=== PATIENT | female | born 1995 | race Caucasian/White ===

== ENCOUNTER 2025-03-07 12:52 | Emergency (ER) | payer SELFPAY ==
--- OUTSIDE RECORDS SUMMARY | 2025-03-07 12:56 | XMS_ITS | Encounter Summary ---
Author Organization [facility] Address [address] [place] [address] Care Team Providers Care Hedis Abstractor Name Role Phone Megan Ramos MD Primary Care Provider Encounter Details Date Type Department Care Team (Late st Contact Info) Description 12/27/2014 Lab Requisition [facility] Services [place] [address] [place] [address] Pedrito Talbot, NO ADDRESS ON FILE Social History Tobacco Use Types Packs/Day Years Used Date Smoking Tobacco: Former Cigarettes 0.5 2 0 01/17/2012 - 01/16/2014 Smokeless Tobacco: Never Alcohol Use Standard Drinks/Week Comments No 0 (1 standard drink = 0.6 oz pur e alcohol) Comments No Sex and Gender Information Value Date Recorded Sex Assigned at Not on file Legal Sex 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 Gender Identity Not on file Sexual Orientation Not on file Occupation Industry Job Start Date Job End Date Not on file Not on file Not on file Not on file Not on file Not on file Not on file Not on file documented as of this encounter Plan of Treatment Not on file documented as of this encounter Procedures Procedure Name Priority Date/Time Associated Diagnosis Comments TSH Routine 12/27/2014 11:44 PM CDT T4 FREE Routine 12/27/2014 11:44 PM CDT documented in this encounter Results * (ABNORMAL) TSH (12/27/2014 11:44 PM CDT) TSH 11.51(H) 0.30 - 4.80 uIU/mL 12/28/2014 4:03 AM CDT [facility] Blood 12/27/2014 11:4 4 PM CDT 12/27/2014 11:44 PM CDT Pedrito T derick DO CHEMISTRY ORDERABLES Gloria l Result Performing Organization Address City/[facility]/ZIP Co de Phone Number [facility] [employer] [facility] CLIA # [id number] [address] [place] [address] * T4 FREE (12/27/2014 11:44 PM CDT) T4 FREE 0.83 0.70 - 1.80 ng/dL 12/28/2014 4:03 AM CDT [facility] Blood 12/27/2014 11:4 4 PM CDT 12/27/2014 11:44 PM CDT Pedrito Candy Johnstonick DO CHEMISTRY ORDERABLES Gloria l Result Performing Organization Address City/[facility] Co de Phone Number [facility] [employer] [facility] CLIA # [id number] [address] [place] [address] documented in this encounter Visit Diagnoses Not on filedocumented in this encounter Care Teams Hedis Abstractor Relationship Specialty Start Date End Date Megan Ramos MD [address] [address] PCP - General Family Practice 02/20/18 documented as of this encounter
--- OUTSIDE RECORDS SUMMARY | 2025-03-07 12:56 | XMS_ITS | Encounter Summary ---
Author Organization [facility] Address [address] [place] [address] Care Team Providers Care Dramatic Teacher Name Role Phone Megan Ramos MD Primary Care Provider [phone] Encounter Details Date Type Department Care Team (Late st Contact Info) Description 05/02/2015 Lab Requisition [facility] Laboratory Services [place] [address] [place] [address] Otf Cronin, DO NO ADDRESS ON FILE Sick Social History Tobacco Use Types Packs/Day Years Used Date Smoking Tobacco: Former Cigarettes 0.5 2 0 01/17/2012 - 01/16/2014 Smokeless Tobacco: Never Alcohol Use Standard Drinks/Week Comments No 0 (1 standard drink = 0.6 oz pur e alcohol) Comments No Sex and Gender Information Value Date Recorded Sex Assigned at Not on file Legal Sex Female 6:10 AM RFID SYSTEMS ARCHITECT Gender Identity Not on file Sexual Orientation [...] Priority Date/Time Associated Diagnosis Comments TSH Routine 05/02/2015 9:26 PM RFID SYSTEMS ARCHITECT Sick [ICD-10-CM] documented in this encounter Results * (ABNORMAL) TSH (05/02/2015 9:26 PM RFID SYSTEMS ARCHITECT) TSH 8.22(H) 0.27 - 4.20 uIU/mL 05/02/2015 10:39 PM RFID SYSTEMS ARCHITECT [facility] Blood Collection / Unknown 05/02/2015 9:26 PM RFID SYSTEMS ARCHITECT 05/02/2015 9:26 PM RFID SYSTEMS ARCHITECT Otf Cronin DO CHEMISTRY ORDERABLES Final Resu lt [facility] CLIA # [id number] [address] [address] documented in this encounter Visit Diagnoses Diagnosis Sick Other unknown and unspecified cause of morbidity or mortality documented in this encounter Care Teams Dramatic Teacher Relationship Specialty Start Date End Date Megan Ramos MD [address] [phone] PCP - General Family Practice 02/20/18 documented as of this encounter
--- OUTSIDE RECORDS SUMMARY | 2025-03-07 12:56 | XMS_ITS | Encounter Summary ---
Author Organization [facility] Address [address] [place] [address] Care Team Providers Care Machine Operator Hop Worker Name Role Phone Megan Ramos MD Primary Care Provider Encounter Details Date Type Department Care Team (Late st Contact Info) Description 04/11/2009 Ancillary Orders [facility] [address] [place] [address] Jorge Steel MD [address] [place] [phone] Knee Pain Social History Tobacco Use Types Packs/Day Years Used Date Smoking Tobacco: Never Alcohol Use Standard Drinks/Week Comments No 0 (1 standard drink = 0.6 oz pur e alcohol) Comments No Sex and Gender Information Value Date Recorded Sex Assigned at Not on file Legal Sex Female 6:10 AM EMERGENCY COMMUNICATIONS OPERATOR Gender Identity Not on file Sexual Orientation Not on file documented as of this encounter Plan of Treatment Not on file documented as of this encounter Results * XR KNEE 1 OR 2 VW RIGHT (04/11/2009 7:55 AM EMERGENCY COMMUNICATIONS OPERATOR) Anatomical Region Laterality Modality Lower Extremity Computed Radiogr aphy Narrative 04/11/2009 10:29 AM EMERGENCY COMMUNICATIONS OPERATOR X-rays obtained in the clinic today of the right knee show no osteolytic or osteoblastic lesions. No fractures are seen. Joint spaces are well maintained. There is some closure of the growth plates occurring. Procedure Note Bandar Qiu PA - 04/11/2009 X-rays obtained in the clinic today of the right knee show no osteolyticor osteoblastic lesions. No fractures are seen. Joint spaces are wellmaintained. There is some closure of the growth plates occurring. us Jorge Steel MD DIAGNOSTIC IMAGING ORDERABLES Final Result documented in this encounter Visit Diagnoses Diagnosis Knee pain Pain in joint, lower leg documented in this encounter Care Teams Machine Operator Hop Worker Relationship Specialty Start Date End Date Megan Ramos MD [address] [address] PCP - General Family Practice 02/20/18 documented as of this encounter
--- OUTSIDE RECORDS SUMMARY | 2025-03-07 12:57 | XMS_ITS | Encounter Summary ---
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
--- OUTSIDE RECORDS SUMMARY | 2025-03-07 12:57 | XMS_ITS | Encounter Summary ---
Author Organization [facility] Address [address] [place] [address] Care Team Providers Care Police Captain Precinct Name Role Phone Megan Ramos MD Primary Care Provider Encounter Details Date Type Department Care Team (Latest Contact Info) Description 08/04/2004 Outpatient Historical [facility] [address] [place] [address] Penny Padilla, BIT SETTER [address] [place] [address] INFLUENZA WITH PNEUMONIA (Primary Dx) Social History Tobacco Use Types Packs/Day Years Used Date Smoking Tobacco: Never Assessed Comments Unknown Sex and Gender Information Value Date Recorded Sex Assigned at Not on file Legal Sex Female 6:10 AM RESOLUTION ANALYST Gender Identity Not on file Sexual Orientation Not on file documented as of this encounter Plan of Treatment Not on file documented as of this encounter Visit Diagnoses Diagnosis Influenza with pneumonia- Primary documented in this encounter Care Teams Police Captain Precinct Relationship Specialty Start Date End Date Megan Ramos MD [address] [facility] [place] [address] PCP - General Family Practice 02/20/18 documented as of this encounter
--- OUTSIDE RECORDS SUMMARY | 2025-03-07 12:57 | XMS_ITS | Encounter Summary ---
Author Organization [facility] Address [address] [place] [address] Care Team Providers Care Restrooms Or Lounges Maid Name Role Phone Megan Ramos MD Primary Care Provider [phone] Encounter Details Date Type Department Care Team (Latest Contact Info) Description 04/05/2006 Outpatient Historical [facility] [address] [place] [address] Penny Padilla, WOOD SKI MAKER [address] [place] [address] Superfic Foreign Bdy NEC (Primary Dx) Social History Tobacco Use Types Packs/Day Years Used Date Smoking Tobacco: Never Assessed Comments Unknown Sex and Gender Information Value Date Recorded Sex Assigned at Not on file Legal Sex Female 6:10 AM HOOP ROLLS OPERATOR Gender Identity Not on file Sexual Orientation Not on file documented as of this encounter Plan of Treatment Not on file documented as of this encounter Visit Diagnoses Diagnosis Other, multiple, and unspecified sites, superficial foreign body (splinter), without major open wound and without mention of infection- Primary documented in this encounter Care Teams Restrooms Or Lounges Maid Relationship Specialty Start Date End Date Megan Ramos MD [address] [facility] [place] [phone] PCP - General Family Practice 02/20/18 documented as of this encounter
--- OUTSIDE RECORDS SUMMARY | 2025-03-07 12:57 | XMS_ITS | Encounter Summary ---
Author Organization [facility] Address [address] [place] [address] Care Team Providers Care Insole Reinforcer Name Role Phone Megan Ramos MD Primary Care Provider [phone] Encounter Details Date Type Department Care Team (Latest Contact Info) Description 08/07/2002 Outpatient Historical [facility] [address] [place] [address] Michelle Byrd MD NO ADDRESS ON FILE ACUTE PHARYNGITIS (Primary Dx) Social History Tobacco Use Types Packs/Day Years Used Date Smoking Tobacco: Never Assessed Comments Unknown Sex and Gender Information Value Date Recorded Sex Assigned at Not on file Legal Sex Female 6:10 AM VIDEOTAPE OPERATOR Gender Identity Not on file Sexual Orientation Not on file documented as of this encounter Plan of Treatment Not on file documented as of this encounter Visit Diagnoses Diagnosis Acute pharyngitis- Primary documented in this encounter Care Teams Insole Reinforcer Relationship Specialty Start Date End Date Megan Ramos MD [address] [address] PCP - General Family Practice 02/20/18 documented as of this encounter
--- OUTSIDE RECORDS SUMMARY | 2025-03-07 12:57 | XMS_ITS | Encounter Summary ---
Author Organization [facility] Address [address] [place] [address] Care Team Providers Care Water Service Supervisor Name Role Phone Megan Ramos MD Primary Care Provider Encounter Details Date Type Department Care Team (Late st Contact Info) Description 01/26/2007 Outpatient Historical [facility] [address] [place] [address] Nithin Alston MD NO ADDRESS ON FILE Social History Tobacco Use Types Packs/Day Years Used Date Smoking Tobacco: Never Assessed Comments Unknown Sex and Gender Information Value Date Recorded Sex Assigned at Not on file Legal Sex Female 6:10 AM COKEMAN Gender Identity Not on file Sexual Orientation Not on file documented as of this encounter Plan of Treatment Not on file documented as of this encounter Visit Diagnoses Not on filedocumented in this encounter Care Teams Water Service Supervisor Relationship Specialty Start Date End Date Megan Ramos MD [address] [facility] [address] [place] [address] PCP - General Family Practice 02/20/18 documented as of this encounter
--- OUTSIDE RECORDS SUMMARY | 2025-03-07 12:57 | XMS_ITS | Encounter Summary ---
Author Organization [facility] Address [address] [place] [address] Care Team Providers Care Liquid Hydrogen Plant Operator Name Role Phone Megan Ramos MD Primary Care Provider Encounter Details Date Type Department Care Team (Late st Contact Info) Description 12/05/2006 Outpatient Historical [facility] [address] [place] [address] Nithin Alston MD NO ADDRESS ON FILE Follow-Up Examination, Following Unspecified Surgery (Primary Dx) Social History Tobacco Use Types Packs/Day Years Used Date Smoking Tobacco: Never Assessed Comments Unknown Sex and Gender Information Value Date Recorded Sex Assigned at Not on file Legal Sex Female 6:10 AM MEDICATION AID Gender Identity Not on file Sexual Orientation Not on file documented as of this encounter Plan of Treatment Not on file documented as of this encounter Visit Diagnoses Diagnosis Follow-up examination, following unspecified surgery- Primary documented in this encounter Care Teams Liquid Hydrogen Plant Operator Relationship Specialty Start Date End Date Megan Ramos MD [address] [facility] [address] [place] [address] PCP - General Family Practice 02/20/18 documented as of this encounter
--- OUTSIDE RECORDS SUMMARY | 2025-03-07 12:57 | XMS_ITS | Data Portability ---
Author Organization [facility] Randy Shirley [facility] Brianne Hickey [facility] Address [address] [address] Assessment No assessment recorded. Plan of Treatment Reminders Order Date Submit Date Provider Last Modified By Organization Details Last Modified Time Details Appointments None recorded. Lab None recorded. Referral None recorded. Procedures None recorded. Surgeries None recorded. Imaging None recorded. Medication Orders prednisone 10 mg tablet 2024 [id number], [address], [place], [place], [id number], 17:19:12 doxycycline monohydrate 100 mg capsule 2024 025 [facility] #[id number], [address], [place], [place], [id number], 17:19:11 Patient TargetsNo targets recorded. Patient Instructions Encounter Date Encounter Id Patient Instructions Last Modified By Organization Details Last Modified Time 08/23/2024 [id number] Increase fluids and follow up for worsening [id number] Not available 08/23/2024 17:21:17 Reason for Referral None Reported. Medical Equipment None Reported. Allergies Allergen ID Allergen Name Allergen Category Reaction Reaction Severity Criticality Documentation Date Start Date Code Code System Note Provider Name and Address Organization Details Recorded Time 74116 Product containin g penicilli n (product) medicatio n hives Not available Not available 01/05/2023 21117 8001 SNOMED React ion: Hives ; Comme nt: Recor ded 04/08 1:47P M by Dodie Meneses LPN, Offic e Visit ; Promo blayne; Signi ficjacquie ce: *; ; Not Available [facility] 3 02:23:58 Medications Name Sig Start Date Stop Date Status Note LastModified by Organization Details LastModified Time prednison e 10 mg tablet Take 2 tabs daily for 4 days and 1 tab daily for 4 days 2024 active Not Available Not Available Not Avai lable prednison e 20 mg tablet daily 08/23 completed 60732; Recorded 08/11/19 22 10:26AM by Leela Castelan (Authori анна through KIM Otero), Phone Encounte r; Refill Quantity : 0; Not Available Not Available Not Available Synthroid 100 mcg tablet daily active 0; Recorded 11/08/19 20 2:56PM by Barry Cordova on/Thomas dum; Not Available Not Available Not Available doxycycli ne monohydra te 100 mg capsule Take 1 capsule twice a day by oral route with meal(s) for 10 days. 2024 active Not Available Not Available Not Avai lable fluoxetin e active Not Available Not Available Not Available omeprazol e active Not Available Not Available Not Available Vitamin daily 08/23 completed 0; Recorded 04/08/20 17 1:50PM by Andre Meneses LPN, Office Visit; Not Available Not Available Not Available ProAir HFA 90 mcg/actua tion aerosol inhaler every four hours, as needed 08/23 completed 1 inhaler; ; Recorded 08/11/19 22 10:28AM by Leela Castelan (Bartolo jj through [facility]IM Otero), Phone Encounte r; Refill Quantity : 0; Not Available Not Available Not Available Vitals Date Recorded Body weight Body mass index (BMI) Body height Body temperature Heart rate Oxygen saturation Oxygen saturation in Arterial blood by Pulse oximetry Systolic And Diastolic Provider Name and Address Organization Details Last Updated DateTime 5 71004.0 1 g 34.7 kg/m2 165.1 cm 99.4 [degF] 110 /min 98 % 98 % 128/72 mm[Hg] Rosalia Banuelos [facility]CChristofer 5 17:07:20 Social History None recorded. Functional Status None recorded. Mental Status None recorded. Family History Nothing Reported. Medical History No medical history recorded. Gynecological HistoryNo gynecological history recorded. Obstetrics History GPAL:G 0 P 0 0 0 0 Past Encounters Encounter ID Performer Location Encounter Start Date Encounter Closed Date Diagnosis/Indication Diagnosis SNOMED-CT Code Diagnosis ICD10 Code Diagnosis IMO Codes Diagnosis Note [id number] ZAC LOPEZ APRN [facility] ([facility]) [address] [place] [address] 08/23/2024 16:56:36 08/23/2024 17:18:09 Acute upper respiratory infection 47965113 J06.9 Acute bronchitis 1867598 2 J20.9 Health Concerns Section Related Observation LastModified by Organization Detai ls LastModified Time None Recorded Concern Status LastModified by Organization Details LastModified Time None Recorded Advance Directives Directive None Recorded Payers Insurance Date Sequence Insurance Name Policy Number Policy De Dios Covered Member ID De Dios Member ID Guarantor Name 08/23/[address] [facility] [id number] Ruchi Umana [id number] Ruchi Umana Notes Date Note Type Note Provider Name and Address Organization Details Recorded Time 08/23/2024 text/html walk in ptPt has a cough, chest congestion, and sinus pain/pressure for 4 days. ZAC LOPEZ APRN [address] [place], [address], [facility] 08/23/2024 17:47:44 OBGyn Episode No OBEpisode recorded.
--- OUTSIDE RECORDS SUMMARY | 2025-03-07 12:57 | XMS_ITS | Encounter Summary ---
Author Organization [facility] Address [address] [place] [address] Care Team Providers Care Buffing Wheel Inspector Name Role Phone Megan Ramos MD Primary Care Provider Encounter Details Date Type Department Care Team (Latest Contact Info) Description 05/18/2002 Outpatient Historical [facility] [address] [place] [address] Yuriy Vasquez MD [address] [phone] ACUTE PHARYNGITIS (Primary Dx); OTITIS MEDIA NOS Social History Tobacco Use Types Packs/Day Years Used Date Smoking Tobacco: Never Assessed Comments Unknown Sex and Gender Information Value Date Recorded Sex Assigned at Not on file Legal Sex Female 6:10 AM COOK CHILI Gender Identity Not on file Sexual Orientation Not on file documented as of this encounter Plan of Treatment Not on file documented as of this encounter Visit Diagnoses Diagnosis Acute pharyngitis- Primary Unspecified otitis media documented in this encounter Care Teams Buffing Wheel Inspector Relationship Specialty Start Date End Date Megan Ramos MD [address] [phone] PCP - General Family Practice 02/20/18 documented as of this encounter
--- OUTSIDE RECORDS SUMMARY | 2025-03-07 12:57 | XMS_ITS | Clinical Summary ---
Author Organization [facility] [place] Address [address] [place] [address] Care Team Providers Care Esthetics Instructor Name Role Phone Megan Ramos MD Primary Care Provider Allergies Active Allergy Reactions Criticality Noted Date Comments Penicillins Rash Low 01/19/2009 Permethrin Swelling Low 07/31/2013 Medications [id number] ( VITAMIN) TabletIndication s:Encounter for supervision of other normal in first trimester Take 1 Tablet by mouth daily. 30 Tablet 1 03/23/2016 Active levothyroxine (SYNTHROID) 112 mcg tablet Take 1 Tablet (112 mcg) by mouth daily helpdesk specialist. 30 Tablet 2 04/10/2018 Active sertraline (ZOLOFT) 50 mg tablet Take 1.5 Tablets (75 mg) by mouth daily. 45 Tablet 3 04/10/2018 Active loratadine (CLARITIN) 10 mg tabletIndication s:Seasonal allergic rhinitis due to pollen Take 1 Tablet (10 mg) by mouth daily. 30 Tablet 2 10/20/2018 Active Active Problems Problem Noted Date Diagnosed Date Supervision of normal 04/13/2018 Tubal ligation evaluation 04/10/2018 Screening for cervical cancer 02/19/2018 Overview (02/19/2018): Normal pap 02/2018 Depression with anxiety 02/12/2018 History of kidney stones 12/11/2016 S/P repeat low transverse X 2 12/12/19 17 Acquired hypothyroidism 07/29/2015 Overview (12/11/2016): Resolved Problems Problem Noted Date Diagnosed Date Resolved Date depression 12/11/20162017 Iron deficiency anemia 12/11/201602/13 Encounter for supervision of normal in third trimester 11/04/2016 12/11/2016 Encounter for supervision of normal first in third trimester 09/09/2016 09/24/2016 Encounter for supervision of normal in second trimester 07/12/2016 09/09/2016 Back pain affecting 05/17/2016 08/28/2016 S/P X 1 05/12/2016 12/11/2016 History of antonia chapin, currently 05/12/2016 12/11/2016 Kidney stone complicating 04/14/2016 12/11/2016 Acute bilateral low back rita n without sciatica 04/14/2016 05/17/2016 Contraception management 10/08/201408/2015 GERD (gastroesophageal reflux disease) 10/08/2014 12/11/2016 depression 09/10/20142015 GERD (gastroesophageal reflux disease) 08/07/2014 08/27/2014 GBS (group B Streptococcus c arrier), +RV culture, currently 08/05/2014 08/27/2014 Breech presentation 08/05/2014 08/28/19 15 Tobacco abuse, in remission 03/11/2014 02/12/2018 FH: thyroid disease 02/11/2014 08/28/19 15 Chronic nasal congestion 02/11/2014 Sinus pressure 02/11/2014 05/11/2014 Tobacco abuse 02/11/2014 03/11/2014 Supervision of normal first 01/24/2014 08/27/2014 Hypothyroidism complicating 01/23/2014 10/08/2014 Infectious mononucleosis 07/12/201003/2012 Immunizations Immunization Administration Dates Next Due (ADACEL/BOOSTRIX)(10 YR UP) TDAP VACCINE, 0.5ML, IM 09/06/2016,07/01/2014 (M-M-R II/PRIORIX)(12 MO UP) MEASLES, MUMPS AND RUBELLA VIRUS VACCINE, 0.5 ML IM/SUBCUT 10/13/1999,12/07/1996 Dt Dtp Dtap Vaccine 10/13/1999, 7,05/12/1996,1995,1995 HIB, Unspecified Formulation 11/15/1997, 05/12/1996,01/21/1996,1995 HPV Vaccine 3 Dose IM VFC 10/06/2010 Hepatitis B Vaccine 07/21/1996,1995,1995 INFLUENZA VACCINE QUADRIVALE NT 3 YR UP PF IM 03/13/2018 IPV/OPV 10/13/1999, 6,01/21/1996,1995 Influenza Vaccine Split 3+ Yrs PF IM 04/12/2016, 04/08/2014 Tdap Vaccine > 7 Yo IM VFC 01/21/2009 Family History Medical History Relation Name Comments Healthy Brother 1 Healthy Brother 2 Healthy Daughter 1 Healthy Daughter 2 Colon Cancer Father Heart Disease Father Other Father arthritis Other Maternal Grandfather unknown Healthy Maternal Grandmother Other Maternal Grandmother unknown Hypertension Mother Other Mother graves disease Thyroid Disease Mother Heart Disease Paternal Grandfather Heart Disease Paternal Grandmother Healthy Sister 1 Healthy Sister 2 Breast Cancer Neg Hx Relation Name Status Comments Brother 1 Alive Brother 2 Alive Daughter 1 Alive Daughter 2 Alive Father Maternal Grandfather Maternal Grandmother Alive Mother Alive Paternal Grandfather Paternal Grandmother Sister 1 Alive Sister 2 Alive Social History Tobacco Use Types Packs/Day Years Used Date Smoking Tobacco: Former Cigarettes 0.5 2 0 01/17/2012 - 01/16/2014 Smokeless Tobacco: Never Alcohol Use Standard Drinks/Week Comments No 0 (1 standard drink = 0.6 oz pur e alcohol) Comments No Sex and Gender Information Value Date Recorded Sex Assigned at Not on file 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 Sex Female 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 Gender Identity Not on file Sexual Orientation Not on file Occupation Industry Job Start Date Job End Date Not on file Not on file Not on file Not on file Not on file Not on file Not on file Not on file Last Filed Vital Signs Vital Sign Reading Time Taken Comments Blood Pressure 120/80 10/20/2018 11:42 AM CDT Pulse 80 10/20/2018 11:42 AM CDT Temperature 36.9 C (98.5 F) 10/20/2018 11:42 AM CDT Respiratory Rate 20 10/20/2018 11:42 AM CDT Oxygen Saturation 98% 10/20/2018 11:42 AM CDT Inhaled Oxygen Concentration - - Weight 77.1 kg (170 lb) 10/20/2018 11:42 AM CDT Height 162.6 cm (5' 4 ) 10/20/2018 11:42 AM CDT Body Mass Index 29.18 10/20/2018 11:42 AM CDT Plan of Treatment Health Maintenance Due Date Last Done Comments HPV VACCINES (2 - 3-dose series) 11/03/2010 10/07/19 11 Preventative Visit-Managed Medicaid 09/03/2014 08/01/2011 CERVICAL CANCER SCREENING 02/13/2021 PAP SMEAR 02/13/2021 02/13/2018, 06/10, 11/28/2011, Additional history exists HPV/Cotest (21-29) 02/13/2023 02/13/2018, 0 06/22/2013, 11/28/2011, Additional history exists INFLUENZA VACCINE (#1) 2025 8, 04/12/2016, 04/08/2014 HPV/Cotest (30-65) 09/03/2025 02/13/2018, 0 06/22/2013, 11/28/2011, Additional history exists DTAP/TDAP/TD VACCINES (9 - T d or Tdap) 09/06/2026 09/06/2016, 07/01/2014, 01/21/2009, Additional history exists HEPATITIS B VACCINES Completed 07/21/1996, 1995, 1995 Procedures Procedure Name Priority Date/Time Associated Diagnosis Comments CERV/VAG CYTO SCREEN PAP RLFX HPV Routine 02/13/2018 4:53 PM CDT Screening for cervical cancer Encounter for supervision of other normal in second trimester from Last 3 Months or Most Recently Relevant to Health Maintenance Results * CERV/VAG CYTO SCREEN PAP RLFX HPV (02/13/2018 4:53 PM CDT) CLINICAL INFORMATION SEE COMMENT 02/18/2018 3:05 PM CDT [facility] Comment:Information not prov ided LAST MENSTRUAL PERIOD SEE COMMENT 02/18/2018 3:05 PM CDT [facility] Comment:INFORMATION NOT PROV IDED PREV PAP: 06/22/13 02/18/2018 3:05 PM CDT [facility] PREV BX: SEE COMMENT 02/18/2018 3:05 PM CDT [facility] Comment:INFORMATION NOT PROV IDED SOURCE Endocervix 02/18/2018 3:05 PM CDT [facility] ADEQUACY: SEE COMMENT 02/18/2018 3:05 PM CDT [facility] Comment: Satisfactory for evaluation. Endocervical/transformation zone component present. Age and/or menstrual status not provided PAP INTERP SEE COMMENT 02/18/2018 3:05 PM CDT [facility] Comment: Negative for intraepithelial lesion or malignancy. Reactive cellular changes associated with repair COMMENT SEE COMMENT 02/18/2018 3:05 PM CDT [facility] Comment: This Pap test has been evaluated with computer assisted technology. FINISH INSPECTOR: SEE COMMENT 2017 3:05 PM CDT [facility] Comment: BLG, CT(ASCP) CT screening location: [place] [address] Administration JOSE Taylor [address] PATHOLOGIST SEE COMMENT 02/18/2018 3:05 PM CDT [facility] Comment: Karl Carranza M.D., Board Certified in Anatomic Pathology and Cytopathology. (electronic signature) EXPLANATORY NOTE SEE COMMENT 018 3:05 PM CDT [facility] Comment: EXPLANATORY NOTE: The Pap is a screening test for cervical cancer. It is not a diagnostic test and is subject to false negative and false positive results. It is most reliable when a satisfactory sample, regularly obtained, is submitted with relevant clinical findings and history, and when the Pap result is evaluated along with historic and current clinical information. Genital SWAB OF ENDOCERVIX / Unknown Collection / Unknown 02/13/2018 4:53 PM CDT 02/14/2018 8:04 AM CDT Narrative [facility] - 02/18/2018 3:05 PM CDT Performing Organization Information: Site ID: Name: [email or web address] Address: [facility] Administration JOSE Gutierrez [address] Director: Arturo Avila us Suzanne Ellis MD PATHOLOGY/CYTOLOGY ORDERAB LES Final Result [facility] from Last 3 Months or Most Recently Relevant to Health Maintenance Insurance [facility] [place] Advance Directives For more information, please contact: [phone] * Full Code (Latest Code Status on File) Date Activated Date Inactivated Comments 05/17/2009 8:12 AM 05/18/2009 2:02 AM * Full Code Date Activated Date Inactivated Comments 05/17/2009 8:06 AM 05/17/2009 8:12 AM * Full Code Date Activated Date Inactivated Comments 04/12/2009 7:17 AM 04/13/2009 2:02 AM * Full Code Date Activated Date Inactivated Comments 04/12/2009 6:51 AM 04/12/2009 7:17 AM Care Teams Esthetics Instructor Relationship Specialty Start Date End Date Megan Ramos MD [address] [phone] PCP - General Family Practice 02/20/18
--- OUTSIDE RECORDS SUMMARY | 2025-03-07 12:57 | XMS_ITS | Encounter Summary ---
Author Organization [facility] Address [address] [place] [address] Care Team Providers Care Knifeman Name Role Phone Megan Ramos MD Primary Care Provider [phone] Encounter Details Date Type Department Care Team (Late st Contact Info) Description 03/18/2017 Lab Requisition [facility] Laboratory Services [place] [address] [place] [address] Agus Mcmahan PA NO ADDRESS ON FILE Social History Tobacco Use Types Packs/Day Years Used Date Smoking Tobacco: Former Cigarettes 0.5 2 0 01/17/2012 - 01/16/2014 Smokeless Tobacco: Never Alcohol Use Standard Drinks/Week Comments No 0 (1 standard drink = 0.6 oz pur e alcohol) Comments No Sex and Gender Information Value Date Recorded Sex Assigned at Not on file 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 Gender Identity Not on file Sexual Orientation [...] Priority Date/Time Associated Diagnosis Comments TSH Routine 03/18/2017 9:35 PM CDT T4 FREE Routine 03/18/2017 9:35 PM CDT documented in this encounter Results * TSH (03/18/2017 9:35 PM CDT) TSH 0.36 0.27 - 4.20 uIU/mL 03/19/2017 12:16 AM CDT [facility] Blood 03/18/2017 9:35 PM CDT 03/18/2017 11:01 PM CDT Agus LUNDY CHEMISTRY ORDERABLES Final Re sult [facility] CLIA # [id number] [address] [place] [address] * T4 FREE (03/18/2017 9:35 PM CDT) T4 FREE 1.33 0.93 - 1.70 ng/dL 03/19/2017 12:16 AM CDT [facility] Blood 03/18/2017 9:35 PM CDT 03/18/2017 11:01 PM CDT Agus LUNDY CHEMISTRY ORDERABLES Final Re sult Performing Organization Address City/[facility]/ZIP Co de Phone Number [facility] CLIA # [id number] [address] [place] [address] documented in this encounter Visit Diagnoses Not on filedocumented in this encounter Care Teams Knifeman Relationship Specialty Start Date End Date Megan Ramos MD [address] [phone] PCP - General Family Practice 02/20/18 documented as of this encounter
--- OUTSIDE RECORDS SUMMARY | 2025-03-07 12:57 | XMS_ITS | Encounter Summary ---
Author Organization [facility] Address [address] [place] [address] Care Team Providers Care Poundmaster Name Role Phone Megan Ramos MD Primary Care Provider Encounter Details Date Type Department Care Team (Latest Contact Info) Description 09/07/2002 Outpatient [facility] [address] [place] [address] Yuriy Vasquez MD [address] [facility] [address] [place] [phone] NONINFEC GASTROENTERIT NEC (Primary Dx) Social History Tobacco Use Types Packs/Day Years Used Date Smoking Tobacco: Never Assessed Comments Unknown Sex and Gender Information Value Date Recorded Sex Assigned at Not on file Legal Sex Female 6:10 AM BLIND ESCORT Gender Identity Not on file Sexual Orientation Not on file documented as of this encounter Plan of Treatment Not on file documented as of this encounter Visit Diagnoses Diagnosis Other and unspecified noninfectious gastroenteritis and colitis(558.9)- Primary Other and unspecified noninfectious gastroenteritis and colitis documented in this encounter Care Teams Poundmaster Relationship Specialty Start Date End Date Meagn Ramos MD [address] [facility] [address] [place] [phone] PCP - General Family Practice 02/20/18 documented as of this encounter
--- OUTSIDE RECORDS SUMMARY | 2025-03-07 12:57 | XMS_ITS | Encounter Summary ---
Author Organization [facility] Address [address] [place] [address] Care Team Providers Care Hydrometer Finisher Name Role Phone Megan Ramos MD Primary Care Provider [phone] Encounter Details Date Type Department Care Team (Late st Contact Info) Description 02/21/2015 Lab Requisition [facility] Laboratory Services [place] [address] [place] [address] Otf Cronin, DO NO ADDRESS ON FILE Social History Tobacco Use Types Packs/Day Years Used Date Smoking Tobacco: Former Cigarettes 0.5 2 0 01/17/2012 - 01/16/2014 Smokeless Tobacco: Never Alcohol Use Standard Drinks/Week Comments No 0 (1 standard drink = 0.6 oz pur e alcohol) Comments No Sex and Gender Information Value Date Recorded Sex Assigned at Not on file Legal Sex Female 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 ASSET 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 Gender Identity Not on file Sexual Orientation [...] Priority Date/Time Associated Diagnosis Comments TSH Routine 02/21/2015 10:59 PM CDT T4 FREE Routine 02/21/2015 10:59 PM CDT documented in this encounter Results * (ABNORMAL) TSH (02/21/2015 10:59 PM CDT) TSH 7.54(H) 0.27 - 4.20 uIU/mL 02/22/2015 12:01 AM CDT [facility] Blood 02/21/2015 10:5 9 PM CDT 02/21/2015 10:59 PM CDT Otf Cronin DO CHEMISTRY ORDERABLES Final Resu lt Performing Organization Address City/[facility]/ZIP Co de Phone Number [facility] CLIA # [id number] [address] [place] [address] * T4 FREE (02/21/2015 10:59 PM CDT) T4 FREE 0.93 0.93 - 1.70 ng/dL 02/22/2015 12:01 AM CDT [facility] Blood 02/21/2015 10:5 9 PM CDT 02/21/2015 10:59 PM CDT Otf Cronin DO CHEMISTRY ORDERABLES Final Resu lt Performing Organization Address City/[facility] Co de Phone Number [facility] CLIA # [id number] [address] [place] [address] documented in this encounter Visit Diagnoses Not on filedocumented in this encounter Care Teams Hydrometer Finisher Relationship Specialty Start Date End Date Megan Ramos MD [address] [phone] PCP - General Family Practice 02/20/18 documented as of this encounter
--- OUTSIDE RECORDS SUMMARY | 2025-03-07 12:57 | XMS_ITS | Encounter Summary ---
Author Organization [facility] Address [address] [place] [address] Care Team Providers Care Coordinating Producer Name Role Phone Megan Ramos MD Primary Care Provider Encounter Details Date Type Department Care Team (Late st Contact Info) Description 11/20/2006 Emergency 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
--- OUTSIDE RECORDS SUMMARY | 2025-03-07 12:57 | XMS_ITS | Encounter Summary ---
Author Organization [facility] Address [address] [place] [address] Care Team Providers Care Historic Interpreter Name Role Phone Megan Ramos MD Primary Care Provider [phone] Encounter Details Date Type Department Care Team (Latest Contact Info) Description 12/28/2002 Outpatient Historical [facility] [address] [place] [address] Yuriy Vasquez MD [address] [facility] [address] [place] [phone] OTITIS MEDIA NOS (Primary Dx) Social History Tobacco Use Types Packs/Day Years Used Date Smoking Tobacco: Never Assessed Comments Unknown Sex and Gender Information Value Date Recorded Sex Assigned at Not on file Legal Sex Female 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
--- OUTSIDE RECORDS SUMMARY | 2025-03-07 12:57 | XMS_ITS | Encounter Summary ---
Author Organization [facility] Address [address] [place] [address] Care Team Providers Care Parking Lot Spotter Name Role Phone Megan Ramos MD Primary Care Provider Encounter Details Date Type Department Care Team (Latest Contact Info) Description 07/20/1998 Outpatient Historical [facility] [address] [place] [address] Blas Santiago, DO [address] [place] [address] Cough (Primary Dx); Vomiting alone; Acute sinusitis, unspecified Social History Tobacco Use Types Packs/Day Years Used Date Smoking Tobacco: Never Assessed Comments Unknown Sex and Gender Information Value Date Recorded Sex Assigned at Not on file Legal Sex Female 6:10 AM TRAFFIC SIGN SUPERVISOR Gender Identity Not on file Sexual Orientation Not on file documented as of this encounter Plan of Treatment Not on file documented as of this encounter Visit Diagnoses Diagnosis Cough- Primary Vomiting alone Acute sinusitis, unspecified documented in this encounter Care Teams Parking Lot Spotter Relationship Specialty Start Date End Date Megan Ramos MD [address] [phone] PCP - General Family Practice 02/20/18 documented as of this encounter
--- OUTSIDE RECORDS SUMMARY | 2025-03-07 12:57 | XMS_ITS | Encounter Summary ---
Author Organization [facility] Address [address] [place] [address] Care Team Providers Care Pile Driver Name Role Phone Megan Ramos MD Primary Care Provider [phone] Encounter Details Date Type Department Care Team (Latest Contact Info) Description 08/06/2003 Outpatient Historical [facility] [address] [place] [address] Penny Padilla, MACHINIST APPRENTICE [address] [place] [address] STREP SORE THROAT (Primary Dx) Social History Tobacco Use Types Packs/Day Years Used Date Smoking Tobacco: Never Assessed Comments Unknown Sex and Gender Information Value Date Recorded Sex Assigned at Not on file Legal Sex Female 6:10 AM APPLICATION SECURITY CONSULTANT Gender Identity Not on file Sexual Orientation Not on file documented as of this encounter Plan of Treatment Not on file documented as of this encounter Visit Diagnoses Diagnosis Streptococcal sore throat- Primary documented in this encounter Care Teams Pile Driver Relationship Specialty Start Date End Date Megan Ramos MD [address] [facility] [address] [place] [phone] PCP - General Family Practice 02/20/18 documented as of this encounter
--- OUTSIDE RECORDS SUMMARY | 2025-03-07 12:57 | XMS_ITS | Encounter Summary ---
Author Organization [facility] Address [address] [place] [address] Care Team Providers Care Automotive Sales Executive Name Role Phone Megan Ramos MD Primary Care Provider Encounter Details Date Type Department Care Team (Latest Contact Info) Description 04/03/2005 Outpatient Historical [facility] Family Medicine [address] [address] Michelle Byrd MD NO ADDRESS ON FILE ACUTE URI NOS (Primary Dx); ALLERGIC RHINITIS NOS Social History Tobacco Use Types Packs/Day Years Used Date Smoking Tobacco: Never Assessed Comments Unknown Sex and Gender Information Value Date Recorded Sex Assigned at Not on file Legal Sex Female 6: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
--- OUTSIDE RECORDS SUMMARY | 2025-03-07 12:57 | XMS_ITS | Encounter Summary ---
Author Organization [facility] Address [address] [place] [address] Care Team Providers Care Turfgrass Technician Name Role Phone Megan Ramos MD Primary Care Provider [phone] Encounter Details Date Type Department Care Team (Latest Contact Info) Description 12/26/2006 Outpatient Historical [facility] Hand [facility] [address] [place] [address] Nithin Alston MD NO ADDRESS ON FILE Encounter for Occupational Therapy (Primary Dx) Social History Tobacco Use Types Packs/Day Years Used Date Smoking Tobacco: Never Assessed Comments Unknown Sex and Gender Information Value Date Recorded Sex Assigned at Not on file 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
--- OUTSIDE RECORDS SUMMARY | 2025-03-07 12:57 | XMS_ITS | Encounter Summary ---
Author Organization [facility] Address [address] [place] [address] Care Team Providers Care Underwater Hunter Name Role Phone Megan Ramos MD Primary Care Provider Encounter Details Date Type Department Care Team (Latest Contact Info) Description 05/14/2005 Outpatient Historical [facility] [address] [place] [address] Penny Padilla, SUPERVISOR RICE MILLING [address] [place] [address] ACUTE URI NOS (Primary Dx) Social History Tobacco Use Types Packs/Day Years Used Date Smoking Tobacco: Never Assessed Comments Unknown Sex and Gender Information Value Date Recorded Sex Assigned at Not on file Legal Sex Female 6:10 AM PHYSICAL THERAPIST CENTER MANAGER Gender Identity Not on file Sexual Orientation Not on file documented as of this encounter Plan of Treatment Not on file documented as of this encounter Visit Diagnoses Diagnosis Acute upper respiratory infections of unspecified site- Primary documented in this encounter Care Teams Underwater Hunter Relationship Specialty Start Date End Date Megan Ramos MD [address] [place] [address] PCP - General Family Practice 02/20/18 documented as of this encounter
--- OUTSIDE RECORDS SUMMARY | 2025-03-07 12:57 | XMS_ITS | Encounter Summary ---
Author Organization [facility] Address [address] [place] [address] Care Team Providers Care Office Cashier Name Role Phone Megan Ramos MD Primary Care Provider Encounter Details Date Type Department Care Team (Latest Contact Info) Description 04/09/2005 Outpatient Historical [facility] [address] [place] [address] Penny Padilla, ENVIRONMENT COORDINATOR [address] [place] [address] ACUTE URI NOS (Primary Dx) Social History Tobacco Use Types Packs/Day Years Used Date Smoking Tobacco: Never Assessed Comments Unknown Sex and Gender Information Value Date Recorded Sex Assigned at Not on file Legal Sex Female 6:10 AM PRODUCT 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
--- OUTSIDE RECORDS SUMMARY | 2025-03-07 12:57 | XMS_ITS | Encounter Summary ---
Author Organization [facility] Address [address] [place] [address] Care Team Providers Care Solidworks Mechanical Designer Name Role Phone Megan Ramos MD Primary Care Provider Encounter Details Date Type Department Care Team (Latest Contact Info) Description 04/29/2002 Outpatient Historical [facility] [address] [place] [address] Michelle Byrd MD NO ADDRESS ON FILE OTITIS MEDIA NOS (Primary Dx); ACUTE PHARYNGITIS Social History Tobacco Use Types Packs/Day Years Used Date Smoking Tobacco: Never Assessed Comments Unknown Sex and Gender Information Value Date Recorded Sex Assigned at Not on file 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
--- OUTSIDE RECORDS SUMMARY | 2025-03-07 12:57 | XMS_ITS | Encounter Summary ---
Author Organization [facility] Address [address] [place] [address] Care Team Providers Care Pulmonary Function Technologist Name Role Phone Megan Ramos MD Primary Care Provider Encounter Details Date Type Department Care Team (Latest Contact Info) Description 03/13/2004 Outpatient Historical [facility] [address] [place] [address] Penny Padilla, GROCERY STORE BAGGER [address] [place] [address] ACUTE PHARYNGITIS (Primary Dx); ACUTE URI NOS Social History Tobacco Use Types Packs/Day Years Used Date Smoking Tobacco: Never Assessed Comments Unknown Sex and Gender Information Value Date Recorded Sex Assigned at Not on file Legal Sex Female 6:10 AM 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
--- OUTSIDE RECORDS SUMMARY | 2025-03-07 12:57 | XMS_ITS | Encounter Summary ---
Author Organization [facility] Address [address] [place] [address] Care Team Providers Care Profile Stitching Machine Operator Name Role Phone Megan Ramos MD Primary Care Provider [phone] Encounter Details Date Type Department Care Team (Latest Contact Info) Description 12/05/2005 Outpatient Historical [facility] [address] [place] [address] Penny Padilla, QUEEN PRODUCER [address] [place] [address] Unspecified Otitis Media (Primary Dx) Social History Tobacco Use Types Packs/Day Years Used Date Smoking Tobacco: Never Assessed Comments Unknown Sex and Gender Information Value Date Recorded Sex Assigned at Not on file 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
--- OUTSIDE RECORDS SUMMARY | 2025-03-07 12:57 | XMS_ITS | Encounter Summary ---
Author Organization [facility] Address [address] [place] [address] Care Team Providers Care Pizza Cook Name Role Phone Megan Ramos MD Primary Care Provider Encounter Details Date Type Department Care Team (Latest Contact Info) Description 08/08/2001 Outpatient Historical [facility] [address] [place] [address] Otf Cronin DO NO ADDRESS ON FILE ACUTE URI NOS (Primary Dx) Social History Tobacco Use Types Packs/Day Years Used Date Smoking Tobacco: Never Assessed Comments Unknown Sex and Gender Information Value Date Recorded Sex Assigned at Not on file Legal Sex Female 6:10 AM SVP OPERATIONS Gender Identity Not on file Sexual Orientation Not on file documented as of this encounter Plan of Treatment Not on file documented as of this encounter Visit Diagnoses Diagnosis Acute upper respiratory infections of unspecified site- Primary documented in this encounter Care Teams Pizza Cook Relationship Specialty Start Date End Date Megan Ramos MD [address] [address] PCP - General Family Practice 02/20/18 documented as of this encounter
--- OUTSIDE RECORDS SUMMARY | 2025-03-07 12:57 | XMS_ITS | Encounter Summary ---
Author Organization [facility] Address [address] [place] [address] Care Team Providers Care Maintenance Data Analyst Name Role Phone Megan Ramos MD Primary Care Provider Encounter Details Date Type Department Care Team (Late st Contact Info) Description 12/26/2006 Outpatient Historical [facility] [address] [place] [address] Nithin Alston MD NO ADDRESS ON FILE Follow-Up Examination, Following Unspecified Surgery (Primary Dx) Social History Tobacco Use Types Packs/Day Years Used Date Smoking Tobacco: Never Assessed Comments Unknown Sex and Gender Information Value Date Recorded Sex Assigned at Not on file Legal Sex Female 6:10 AM .NET ARCHITECT Gender Identity Not on file Sexual Orientation Not on file documented as of this encounter Plan of Treatment Not on file documented as of this encounter Visit Diagnoses Diagnosis Follow-up examination, following unspecified surgery- Primary documented in this encounter Care Teams Maintenance Data Analyst Relationship Specialty Start Date End Date Megan Ramos MD [address] [facility] [address] [place] [address] PCP - General Family Practice 02/20/18 documented as of this encounter
--- OUTSIDE RECORDS SUMMARY | 2025-03-07 12:57 | XMS_ITS | Encounter Summary ---
Author Organization [facility] Address [address] [place] [address] Care Team Providers Care Draw Machine Operator Name Role Phone Megan Ramos MD Primary Care Provider Encounter Details Date Type Department Care Team (Latest Contact Info) Description 07/13/2002 Outpatient Historical [facility] [address] [place] [address] Yuriy Vasquez MD [address] [facility] [address] [place] [address] ACUTE PHARYNGITIS (Primary Dx); ACUTE URI NOS Social History Tobacco Use Types Packs/Day Years Used Date Smoking Tobacco: Never Assessed Comments Unknown Sex and Gender Information Value Date Recorded Sex Assigned at Not on file Legal Sex Female 6:10 AM AGRICULTURAL PRODUCE WASHER Gender Identity Not on file Sexual Orientation Not on file documented as of this encounter Plan of Treatment Not on file documented as of this encounter Visit Diagnoses Diagnosis Acute pharyngitis- Primary Acute upper respiratory infections of unspecified site documented in this encounter Care Teams Draw Machine Operator Relationship Specialty Start Date End Date Megan Ramos MD [address] [facility] 60 [place] [address] PCP - General Family Practice 02/20/18 documented as of this encounter
--- OUTSIDE RECORDS SUMMARY | 2025-03-07 12:57 | XMS_ITS | Encounter Summary ---
Author Organization [facility] Address [address] [place] [address] Care Team Providers Care Navy Airspace Officer Name Role Phone Megan Ramos MD Primary Care Provider Encounter Details Date Type Department Care Team (Latest Contact Info) Description 07/27/2005 Outpatient Historical [facility] [address] [place] [address] Penny Padilla, COSTUME DESIGN TEACHER [address] [place] [address] OTITIS MEDIA NOS (Primary Dx) Social History Tobacco Use Types Packs/Day Years Used Date Smoking Tobacco: Never Assessed Comments Unknown Sex and Gender Information Value Date Recorded Sex Assigned at Not on file Legal Sex Female 6:10 AM STRUCTURES TECHNICIAN Gender Identity Not on file Sexual Orientation Not on file documented as of this encounter Plan of Treatment Not on file documented as of this encounter Visit Diagnoses Diagnosis Unspecified otitis media- Primary documented in this encounter Care Teams Navy Airspace Officer Relationship Specialty Start Date End Date Megan Ramos MD [address] [facility] [address] [place] [address] PCP - General Family Practice 02/20/18 documented as of this encounter
--- OUTSIDE RECORDS SUMMARY | 2025-03-07 12:57 | XMS_ITS | Encounter Summary ---
Author Organization [facility] Address [address] [place] [address] Care Team Providers Care Employee Relations Administrator Name Role Phone Megan Ramos MD Primary Care Provider [phone] Encounter Details Date Type Department Care Team (Latest Contact Info) Description 05/29/2006 Outpatient Historical [facility] [address] [place] [address] Penny Padilla, BULK SAUSAGE CASING TIER OFF [address] [place] [address] Acute Upper Respiratory Infections of Unspecified Site (Primary Dx) Social History Tobacco Use Types Packs/Day Years Used Date Smoking Tobacco: Never Assessed Comments Unknown Sex and Gender Information Value Date Recorded Sex Assigned at Not on file Legal Sex Female 6:10 AM PRESS WRITER Gender Identity Not on file Sexual Orientation Not on file documented as of this encounter Plan of Treatment Not on file documented as of this encounter Visit Diagnoses Diagnosis Acute upper respiratory infections of unspecified site- Primary documented in this encounter Care Teams Employee Relations Administrator Relationship Specialty Start Date End Date Megan Ramos MD [address] [facility] [place] [address] PCP - General Family Practice 02/20/18 documented as of this encounter
--- OUTSIDE RECORDS SUMMARY | 2025-03-07 12:57 | XMS_ITS | Encounter Summary ---
Author Organization [facility] Address [address] [place] [address] Care Team Providers Care Environmental Health Manager Name Role Phone Megan Ramos MD Primary Care Provider Encounter Details Date Type Department Care Team (Latest Contact Info) Description 02/16/2005 Outpatient Historical [facility] [address] [place] [address] Penny Padilla, FREIGHT CAR BUILDER [address] [place] [address] OTITIS MEDIA NOS (Primary Dx) Social History Tobacco Use Types Packs/Day Years Used Date Smoking Tobacco: Never Assessed Comments Unknown Sex and Gender Information Value Date Recorded Sex Assigned at Not on file Legal Sex Female 6:10 AM PRODUCTION CONTROL MANAGER Gender Identity Not on file Sexual Orientation Not on file documented as of this encounter Plan of Treatment Not on file documented as of this encounter Visit Diagnoses Diagnosis Unspecified otitis media- Primary documented in this encounter Care Teams Environmental Health Manager Relationship Specialty Start Date End Date Megan Ramos MD [address] [facility] [address] [place] [address] PCP - General Family Practice 02/20/18 documented as of this encounter
--- OUTSIDE RECORDS SUMMARY | 2025-03-07 12:57 | XMS_ITS | Encounter Summary ---
Author Organization [facility] Address [address] [place] [address] Care Team Providers Care Lathe Winder Name Role Phone Megan Ramos MD Primary Care Provider Encounter Details Date Type Department Care Team (Latest Contact Info) Description 08/02/2004 Outpatient Historical [facility] [address] [place] [address] Penny Padilla, UPSET WELDING MACHINE OPERATOR [address] [place] [address] INFLUENZA WITH PNEUMONIA (Primary Dx) Social History Tobacco Use Types Packs/Day Years Used Date Smoking Tobacco: Never Assessed Comments Unknown Sex and Gender Information Value Date Recorded Sex Assigned at Not on file Legal Sex Female 6:10 AM MONUMENT STONECUTTER Gender Identity Not on file Sexual Orientation Not on file documented as of this encounter Plan of Treatment Not on file documented as of this encounter Visit Diagnoses Diagnosis Influenza with pneumonia- Primary documented in this encounter Care Teams Lathe Winder Relationship Specialty Start Date End Date Megan Ramos MD [address] [facility] [address] [place] [address] PCP - General Family Practice 02/20/18 documented as of this encounter
--- OUTSIDE RECORDS SUMMARY | 2025-03-07 12:57 | XMS_ITS | Encounter Summary ---
Author Organization [facility] Address [address] [place] [address] Care Team Providers Care Animal Taxonomist Name Role Phone Megan Ramos MD Primary Care Provider Encounter Details Date Type Department Care Team (Latest Contact Info) Description 09/29/2004 Outpatient Historical [facility] [address] [place] [address] Penny Padilla, VELVET STEAMER [address] [place] [address] OTITIS MEDIA NOS (Primary Dx) Social History Tobacco Use Types Packs/Day Years Used Date Smoking Tobacco: Never Assessed Comments Unknown Sex and Gender Information Value Date Recorded Sex Assigned at Not on file Legal Sex Female 6:10 AM FRUIT BUYER Gender Identity Not on file Sexual Orientation Not on file documented as of this encounter Plan of Treatment Not on file documented as of this encounter Visit Diagnoses Diagnosis Unspecified otitis media- Primary documented in this encounter Care Teams Animal Taxonomist Relationship Specialty Start Date End Date Megan Ramos MD [address] [facility] [address] [place] [address] PCP - General Family Practice 02/20/18 documented as of this encounter
--- OUTSIDE RECORDS SUMMARY | 2025-03-07 12:57 | XMS_ITS | Encounter Summary ---
Author Organization [facility] Address [address] [place] [address] Care Team Providers Care Metallurgical Or Materials Technician Name Role Phone Megan Ramos MD Primary Care Provider Encounter Details Date Type Department Care Team (Latest Contact Info) Description 10/06/2004 Outpatient Historical [facility] [address] [place] [address] Penny Padilla, RELAY TESTER [address] [place] [address] OTALGIA NOS (Primary Dx) Social History Tobacco Use Types Packs/Day Years Used Date Smoking Tobacco: Never Assessed Comments Unknown Sex and Gender Information Value Date Recorded Sex Assigned at Not on file Legal Sex Female 6:10 AM ROUND CORNER CUTTER OPERATOR Gender Identity Not on file Sexual Orientation Not on file documented as of this encounter Plan of Treatment Not on file documented as of this encounter Visit Diagnoses Diagnosis Otalgia, unspecified- Primary documented in this encounter Care Teams Metallurgical Or Materials Technician Relationship Specialty Start Date End Date Megan Ramos MD [address] [facility] [address] [place] [address] PCP - General Family Practice 02/20/18 documented as of this encounter
--- OUTSIDE RECORDS SUMMARY | 2025-03-07 12:57 | XMS_ITS | Encounter Summary ---
Author Organization [facility] Address [address] [place] [address] Care Team Providers Care Mixer And Scaler Name Role Phone Megan Ramos MD Primary Care Provider Encounter Details Date Type Department Care Team (Latest Contact Info) Description 09/17/2003 Outpatient Historical [facility] [address] [place] [address] Penny Padilla, DELI DEPARTMENT MANAGER [address] [place] [address] ACUTE URI NOS (Primary Dx) Social History Tobacco Use Types Packs/Day Years Used Date Smoking Tobacco: Never Assessed Comments Unknown Sex and Gender Information Value Date Recorded Sex Assigned at Not on file Legal Sex Female 6:10 AM SUPERVISOR WET POUR Gender Identity Not on file Sexual Orientation Not on file documented as of this encounter Plan of Treatment Not on file documented as of this encounter Visit Diagnoses Diagnosis Acute upper respiratory infections of unspecified site- Primary documented in this encounter Care Teams Mixer And Scaler Relationship Specialty Start Date End Date Megan Ramos MD [address] [place] [address] PCP - General Family Practice 02/20/18 documented as of this encounter
--- OUTSIDE RECORDS SUMMARY | 2025-03-07 12:57 | XMS_ITS | Encounter Summary ---
Author Organization [facility] Address [address] [place] [address] Care Team Providers Care Art History Professor Name Role Phone Megan Ramos MD Primary Care Provider Encounter Details Date Type Department Care Team (Latest Contact Info) Description 05/05/2001 Outpatient Historical [facility] [address] [place] [address] Penny Padilla, BLUEPRINT DUPLICATOR [address] [place] [address] URIN TRACT INFECTION NOS (Primary Dx) Social History Tobacco Use Types Packs/Day Years Used Date Smoking Tobacco: Never Assessed Comments Unknown Sex and Gender Information Value Date Recorded Sex Assigned at Not on file Legal Sex Female 6:10 AM 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
--- OUTSIDE RECORDS SUMMARY | 2025-03-07 12:57 | XMS_ITS | Encounter Summary ---
Author Organization [facility] Address [address] [place] [address] Care Team Providers Care Electric Switch Tester Name Role Phone Megan Ramos MD Primary Care Provider [phone] Encounter Details Date Type Department Care Team (Late st Contact Info) Description 10/17/2015 Lab Requisition [facility] [place] [address] [place] [address] Otf Cronin, DO NO ADDRESS [...] on file Legal Sex Female 6:10 AM FORTUNE COOKIE MAKER Gender Identity Not on file Sexual Orientation [...] Priority Date/Time Associated Diagnosis Comments TSH Routine 10/17/2015 9:08 PM CDT T4 FREE Routine 10/17/2015 9:08 PM CDT documented in this encounter Results * (ABNORMAL) TSH (10/17/2015 9:08 PM CDT) TSH 5.64(H) 0.27 - 4.20 uIU/mL 10/17/2015 10:40 PM CDT [facility] Blood 10/17/2015 9:08 PM CDT 10/17/2015 9:08 PM CDT Otf Cronin DO CHEMISTRY ORDERABLES Final Resu lt Performing Organization Address City/[facility]/ZIP Co de Phone Number [facility] CLIA # [id number] [address] [place] [address] * (ABNORMAL) T4 FREE (10/17/2015 9:08 PM CDT) T4 FREE 0.77(L) 0.93 - 1.70 ng/dL 10/17/2015 10:40 PM CDT [facility] Blood 10/17/2015 9:08 PM CDT 10/17/2015 9:08 PM CDT Otf Cronin DO CHEMISTRY ORDERABLES Final Resu lt Performing Organization Address City/[facility]/ZIP Co de Phone Number [facility] CLIA # [id number] [address] [place] [address] documented in this encounter Visit Diagnoses Not on filedocumented in this encounter Care Teams Electric Switch Tester Relationship Specialty Start Date End Date Megan Ramos MD [address] [address] PCP - General Family Practice 02/20/18 documented as of this encounter
--- OUTSIDE RECORDS SUMMARY | 2025-03-07 12:57 | XMS_ITS | Encounter Summary ---
Author Organization [facility] Address [address] [place] [address] Care Team Providers Care Scientific Research Manager Name Role Phone Megan Ramos MD Primary Care Provider Encounter Details Date Type Department Care Team (Latest Contact Info) Description 05/14/2001 Outpatient Historical [facility] [address] [place] [id number] Penny Padilla, GROUNDS AND NURSERY SPECIALIST [address] [place] [id number] NONINFEC GASTROENTERIT NEC (Primary Dx) Social History Tobacco Use Types Packs/Day Years Used Date Smoking Tobacco: Never Assessed Comments Unknown Sex and Gender Information Value Date Recorded Sex Assigned at Not on file Legal Sex Female 6:10 AM [employer] Gender Identity Not on file Sexual Orientation Not on file documented as of this encounter Plan of Treatment Not on file documented as of this encounter Visit Diagnoses Diagnosis Other and unspecified noninfectious gastroenteritis and colitis(558.9)- Primary Other and unspecified noninfectious gastroenteritis and colitis documented in this encounter Care Teams Scientific Research Manager Relationship Specialty Start Date End Date Mgean Ramos MD [address] [address] [place] [phone] PCP - General Family Practice 02/20/18 documented as of this encounter
--- NOTE | 2025-03-07 13:00 | ECG_ITS ---
[facility] 2025-[facility]-07 Pat Name: Ruchi Umana Department: Room: Gender: Female Residential Sales: : 1995 Requested By: Nemo Lagos Order Number: [id number] Ocampo MD: Binh Stack M.D. Measurements Intervals Mcdaniel Rate: 85 P: 39 FL: 124 QRS: 26 QRSD: 106 T: 24 QT: 392 QTc: 467 Interpretive Statements SINUS RHYTHM INTERPRETATION BASED ON A DEFAULT AGE OF 40 YEARS No previous ECG available for comparison Electronically Signed On 03-07-2025 14:35:22 CDT by Binh Stack M.D. [id number]
[2025-03-07 13:03] VITALS: BP 128/76; PULSE 90; TEMP 37.1; O2SAT 100
--- NOTE | 2025-03-07 13:13 | XRR_ITS ---
PROCEDURE INFORMATION: Exam: XR Chest Exam date and time: 03/07/2025 1:16 PM Age: 29 years old Clinical indication: Pain; Chest pressure; Additional info: Chest pain TECHNIQUE: Imaging protocol: Radiologic exam of the chest. Views: 1 view. COMPARISON: No relevant prior studies available. FINDINGS: Lungs: Unremarkable. No consolidation. Pleural spaces: Unremarkable. No pleural effusion. No pneumothorax. Heart/Mediastinum: Unremarkable. No cardiomegaly. Bones/joints: Unremarkable. XR/XR chest 1V portable [id number] IMPRESSION: No acute findings.
--- NOTE | 2025-03-07 13:13 | W.ED.CHESTPA ---
HPI - Chest Pain General: Chief Complaint: Chest Pain Stated Complaint: chest pain Time Seen by Provider: 03/07/25 12:55 Source: patient Mode of arrival: ambulatory Limitations: no limitations History of Present Illness: Patient is a 29-year-old female here for complaints of episodic chest pain beginning over the past 2 to 3 days. She reports pain to her substernal/left chest. She states pain always begins at rest. She has not noticed any exertional component. No shortness of breath or difficulty breathing. She is not complaining of palpitations. She initially thought symptoms were related to anxiety. She did see her primary care provider a few days ago for evaluation of symptoms. They had recommended ED evaluation then but she delayed. She does have a history of acid reflux/GERD but states symptoms feel different. She has no cardiac or pulmonary history. No risk factors for cardiac disease. MD complaint: chest pain Onset (ago): day(s) Timing of current episode: episodic Onset: during rest Pain location: substernal and left chest Pain radiation: none Severity: moderate Relieving factors: nothing Exacerbating factors: nothing Associated symptoms: Deny abdominal pain, dyspnea, fever(s), nausea, palpitations, syncope or vomiting Treatment prior to arrival: none Risk Factors: Coronary artery disease risk factors: none Thoracic aortic dissection risk factors: none Related Data Home Medications ?Medication ?Instructions ?Recorded ?Confirmed No Known Home Medications 08/06/24 08/06/24 Allergies Allergy/AdvReac Type Severity Reaction Status Date / Time No Known Allergies Allergy Verified 03/07/25 13:09 Review of Systems Const: Denies: fever(s), chills, body aches, fatigue or malaise Eyes: Denies: change in vision or blurry vision Card: Reports: chest pain; Denies: palpitations, irregular heart rhythm, edema, swelling of feet/ankles, lightheadedness, syncope, pre-syncope, dyspnea on exertion, orthopnea, leg pain with exertion or acrocyanosis Resp: Denies: dyspnea, productive cough or pain on inspiration GI: Reports: heartburn; Denies: abdominal pain, nausea, vomiting or diarrhea : Denies: flank pain or dysuria Musc: Denies: neck pain, back pain, extremity pain, extremity swelling or joint pain Skin/Breast: Denies: rash Neuro: Denies: numbness in extremities, weakness in extremities, sensory changes, difficulty walking or dizziness [facility] PFSH: Social History Smoking and tobacco/nicotine status: never used tobacco/nicotine Physical Exam Const: COMMON NORMALS: no acute distress, average body habitus, patient oriented x3, no limitations, healthy appearing, alert and well nourished GENERAL APPEARANCE: cooperative HENMT: COMMON NORMALS: normocephalic and atraumatic HEAD & SCALP: normocephalic and atraumatic Neck/C-Spine: COMMON NORMALS: full ROM, no lymphadenopathy, supple and no meningeal signs Chest: COMMONS NORMALS: normal inspection of the chest and normal palpation of entire chest wall Resp: COMMON NORMALS: normal respiratory effort and clear to auscultation bilaterally AUSCULTATION: clear to auscultation bilaterally Cardio: COMMON NORMALS: regular rate and regular rhythm RATE: regular rate RHYTHM: regular rhythm GI: COMMON NORMALS: Normal to inspection, nondistended, normoactive bowel sounds present, Soft to palpation, non-tender, No hepatosplenomegaly present and no masses PALPATION: Yes Soft to palpation and Yes No hepatosplenomegaly present : COMMON NORMALS: Yes no CVA tenderness BLADDER/KIDNEY EXAM: Yes no CVA tenderness Back/Pelvis: COMMON NORMALS: no CVA tenderness and thoracic and lumbar spine normal to inspection Extremity: COMMON NORMALS: normal to inspection, capillary refill normal, no clubbing, cyanosis or edema, no calf tenderness and no pedal edema GENERAL: Yes normal exam except as noted Neuro: COMMON NORMALS: patient oriented x3 SENSORIUM/ORIENTATION: Yes alert MENINGEAL SIGNS: Yes no meningeal signs Skin: COMMON NORMALS: no rashes or lesions noted GENERAL SKIN EXAM: no rashes or lesions noted Course Vital Signs: Vital signs: Vital Signs Temperature 98.7 F 03/07/25 13:03 Pulse Rate 90 03/07/25 13:03 Blood Pressure 128/76 03/07/25 13:03 Pulse Oximetry 100 03/07/25 13:03 Oxygen Delivery Me thod Room Air 03/07/25 13:03 MDM - Chest Pain Medical Decision Making Patient appears in no acute distress. EKG is nonischemic. CXR is unremarkable. Blood work including a troponin and D-dimer are normal. Based on history-we do not need to repeat 2-hour troponin on this visit. She is stable from an emergency standpoint to follow-up with primary care. Return to ED precautions discussed. Medical Records I reviewed the patient's medical records. Lab Data I reviewed the patient's lab results. 03/07/25 13:12 03/07/25 13:12 Laboratory Results WBC 6.43 10^3/uL (3.29-11.43) 03/07/25 13:12 RBC 4.37 10^6/uL (3.85-5.65) 03/07/25 13:12 Hgb 10.10 g/dL (11.27-16.99) L 03/07/25 13:12 Hct 33.9 % (36-47) L 03/07/25 13:12 MCV 77.6 fl (85-98) L 03/07/25 13:12 MCH 23.1 pg (27-33) L 03/07/25 13:12 MCHC 29.8 g/dL (30-55) L 03/07/25 13:12 RDW 16.1 % (12.1-15.1) H 03/07/25 13:12 Plt Count 230 10^3/cmm (157-399) 03/07/25 13:12 MPV 11.2 fL (7.4-10.4) H 03/07/25 13:12 Neut % (Auto) 48.6 % 03/07/25 13:12 Lymph % (Auto) 39.8 % 03/07/25 13:12 [place] % (Auto) 10.0 % 03/07/25 13:12 Eos % (Auto) 0.8 % 03/07/25 13:12 Baso % (Auto) 0.5 % 03/07/25 13:12 Neut # (Auto) 3.13 10^3/uL (1.8-7.7) 03/07/25 13:12 Lymph # (Auto) 2.6 10^3/uL (0.8-4.8) 03/07/25 13:12 [place] # (Auto) 0.6 10^3/uL (0.2-0.9) 03/07/25 13:12 Eos # (Auto) 0.1 10^3/uL (0.0-0.8) 03/07/25 13:12 Baso # (Auto) 0.0 10^3/uL (0.0-0.1) 03/07/25 13:12 Nucleated RBC % (auto) 0 % 03/07/25 13:12 Nucleated RBCs # 0.0 /100WBC 03/07/25 13:12 D-Dimer 0.28 ug/mLFEU (0-0.59) 03/07/25 13:12 Sodium 136 mmol/L (136-145) 03/07/25 13:12 Potassium 3.8 mmol/L (3.5-5.1) 03/07/25 13:12 Chloride 103 mmol/L (98-107) 03/07/25 13:12 Carbon Dioxide 22 mmol/L (22-29) 03/07/25 13:12 Anion Gap 14.8 (5-19) 03/07/25 13:12 BUN 12 mg/dL (6-20) 03/07/25 13:12 Creatinine 0.7 mg/dL (0.5-0.9) 03/07/25 13:12 GFR Calculation 98.9 mL/min (90-130) 03/07/25 13:12 Glucose 82 mg/dL (65-115) 03/07/25 13:12 Calculated Osmolality 281 mOsm/kg (285-295) L 03/07/25 13:12 Calcium 9.0 mg/dL (8.5-10.5) 03/07/25 13:12 Total Bilirubin 0.2 mg/dL (0.15-1.2) 03/07/25 13:12 AST 19 U/L (0-32) 03/07/25 13:12 ALT 14 U/L (0-33) 03/07/25 13:12 Alkaline Phosphatase 88 U/L (35-105) 03/07/25 13:12 Troponin T Baseline < 6 ng/L (0-10) 03/07/25 13:12 Total Protein 7.7 g/dL (6.6-8.7) 03/07/25 13:12 Albumin 4.5 g/dL (3.5-5.2) 03/07/25 13:12 Globulin 3.2 g/dL (1.3-4.6) 03/07/25 13:12 XR interpretation done by ED provider, pending radiology final review Discharge Plan Discharge Patient Disposition: Home Clinical Impression: Atypical chest pain Condition: Stable Prescriptions: No Action No Known Home Medications Discharge Orders: Discharge ED (Routine); Ordered 03/07/25 Ordered By: Nemo Lagos Referrals: Penny Padilla FNP [Family Provider, Family Practice] Nadia Cat [Primary Care Provider] Patient Instructions: Chest Pain (DC), Patient Portal & Julisa Instructions Activity Restrictions/Additional Instructions: As we discussed, your blood work including troponin and D-dimer (rules out a blood clot in your lungs) was unremarkable. Your chest x-ray is normal. EKG showing no concerning findings. I think it is reasonable to follow-up with primary care later this week for reevaluation if symptoms persist. You may return to the emergency department at anytime for any further concerns you may have. I hope you begin to feel better soon. Print Language: Afghan Coding Level of Care Code ED Well Tender for Alberto Hein
[2025-03-07 13:24] LABS: Hematocrit 33.9 % (36-47); Hemoglobin 10.10 g/dL (11.27-16.99); Mean Corpuscular HGB Conc 29.8 g/dL (30-55); Mean Corpuscular Hemoglobin 23.1 pg (27-33); Mean Corpuscular Volume 77.6 fl (85-98); Nucleated Red Blood Cells % 0 %; Platelet Count 230 10^3/cmm (157-399); Red Blood Count 4.37 10^6/uL (3.85-5.65); White Blood Count 6.43 10^3/uL (3.29-11.43)
[2025-03-07] MEDS: lidocaine 2% viscous 15 ML, aluminum-mag hydrox-simethicon 30 ML, sucralfate oral liq 1 GM PO (13:30)
[2025-03-07 13:46] LABS: Alanine Aminotransferase 14 U/L (0-33); Albumin Level 4.5 g/dL (3.5-5.2); Alkaline Phosphatase 88 U/L (35-105); Aspartate Amino Transferase 19 U/L (0-32); Blood Urea Nitrogen 12 mg/dL (6-20); Calcium 9.0 mg/dL (8.5-10.5); Carbon Dioxide 22 mmol/L (22-29); Chloride 103 mmol/L (98-107); Creatinine Clr Calc Pharmacy 131.7485; Globulin 3.2 g/dL (1.3-4.6); Glucose 82 mg/dL (65-115); Osmolality Calculated 281 mOsm/kg (285-295); Sodium 136 mmol/L (136-145); Total Protein 7.7 g/dL (6.6-8.7); Troponin(5th) Baseline < 6 ng/L (0-10)
[2025-03-07 13:47] LABS: Anion Gap 14.8 (5-19); Potassium 3.8 mmol/L (3.5-5.1)
[2025-03-07 14:10] VITALS: BP 117/77; PULSE 86; RESP 20; O2SAT 99
== END 2025-03-07 14:10 | disposition home or self-care (01) ==
PROVIDERS: Emergency Provider Physician Assistant; Family Provider Nurse Practitioner Family; PCP Nurse Practitioner Adult Health
DX: R07.89 Other chest pain (principal)
CPT/HCPCS: 36415; 71045; 80053; 84484; 85025; 85378; 93005; 99285; J9999